=== PATIENT | female | born 1970 | race African-American/Black ===

== ENCOUNTER 2017-02-27 14:56 | Emergency (ER) | payer MEDICARE, MEDICAID ==
[~2017-02-27] VITALS: Ht 180.3 cm; Wt 126.0 kg
[~2017-02-27 14:56] MED LIST: AMLODIPINE; GLYBURIDE; METOPROLOL
[2017-02-27 15:01] VITALS: BP 150/100
== END 2017-02-27 18:39 | disposition home or self-care (01) ==
LOC: ER 15:12
DX: M54.2 Cervicalgia (principal); M54.9 Dorsalgia, unspecified; I12.0 Hypertensive chronic kidney disease with stage 5 chronic kidney disease or end stage renal disease; N18.6 End stage renal disease; E11.9 Type 2 diabetes mellitus without complications; Z99.2 Dependence on renal dialysis; V43.52XA Car driver injured in collision with other type car in traffic accident, initial encounter; Y92.488 Other paved roadways as the place of occurrence of the external cause
CPT/HCPCS: 72040; 72100; 99284

== ENCOUNTER 2017-05-22 14:48 | Inpatient (IN) | payer MEDICARE, MEDICAID ==
[~2017-05-22] VITALS: Ht 180.3 cm; Wt 127.5 kg
[2017-05-22 15:49] LABS: BASOPHILS % 0.9 % (0.0-2.0); EOSINOPHILS % 1.5 % (0.0-5.0); HEMATOCRIT. 36.2 % (36.0-48.0); HEMOGLOBIN. 12.1 g/dL (12.0-16.0); MEAN CORPUSCULAR HEMOGLOBIN 29.2 pg (28.0-32.0); MEAN CORPUSCULAR VOLUME 87.6 fL (81.0-99.0); MEAN PLATELET VOLUME 8.9 fl (7.4-10.4); MONOCYTES % 5.6 % (2.0-8.0); PLATELET 180 x1000/uL (130-400); RED BLOOD CELL COUNT 4.13 mill/uL (4.2-5.4); RED CELL DISTRIBUTION WIDTH 16.8 % (11.6-14.6)
[2017-05-22 15:53] LABS: INR 1.2; PROTHROMBIN TIME 12.4 sec
[2017-05-22 16:03] LABS: CARBON DIOXIDE 28 mEq/L (21-32); CHLORIDE 96 mEq/L (98-107); TROPONIN I 0.04 ng/mL (0.00-0.04)
[2017-05-22] MEDS ORDERED: SODIUM CHLORIDE 0.9% 500 ML IV ONE (16:15)
[2017-05-23] VITALS (7 sets, daily range): BP systolic 138–193; BP diastolic 86–138
[2017-05-23] MEDS ORDERED: DEXTROSE 50% WATER 50ML SYRINGE IV PRN (00:30)
[2017-05-23] MEDS ORDERED: HYDROCODONE/ACETAMINOPHEN 5/325MG TABLET PO PRN (00:30)
[2017-05-23] MEDS: CLONIDINE 0.1MG TABLET PO PRN (00:53)
[2017-05-23] MEDS: BLOOD SUGAR DIAGNOSTIC STRIP TEST SCH ×4 (06:24→20:07)
[2017-05-23] MEDS: INSULIN LISPRO 100 UNITS/ML SUBCUT SCH ×4 (07:50→20:07)
[2017-05-23] MEDS: AMLODIPINE 10MG TABLET PO SCH (08:58)
[2017-05-23] MEDS: METOPROLOL TARTRATE 100MG TABLET PO SCH ×2 (08:58→20:01)
[2017-05-23] MEDS ORDERED: NEPVIT PO (10:24)
[2017-05-23] MEDS ORDERED: FURO80TA3 PO (10:24)
[2017-05-23] MEDS ORDERED: DILT240C92 PO (10:24)
[2017-05-23] MEDS ORDERED: CALC-17 PO (10:24)
[2017-05-23] MEDS ORDERED: ONDANSETRON HCL 4MG/2ML VIAL IV PRN (11:45)
[2017-05-23] MEDS: FUROSEMIDE 80MG TABLET PO SCH ×2 (11:57→17:33)
[2017-05-23] MEDS: FOLIC ACID/VITAMIN B COMP W-C TABLET PO SCH (11:57)
[2017-05-23] MEDS: DILTIAZEM HCL 180MG CAPSULE CD 24HR PO SCH (11:57)
[2017-05-23] MEDS: CALCIUM CARBONATE 500MG TABLET CHEW PO SCH ×2 (12:45→17:33)
[2017-05-23] MEDS: APIXABAN 2.5 MG TABLET PO SCH (20:02)
[2017-05-24] VITALS: BP 154/109
[2017-05-24] MEDS: CLONIDINE 0.1MG TABLET PO PRN (00:37)
[2017-05-24 04:00] VITALS: BP 146/98
[2017-05-24] MEDS: BLOOD SUGAR DIAGNOSTIC STRIP TEST SCH (06:32)
[2017-05-24 07:42] LABS: BASOPHILS % 0.7 % (0.0-2.0); EOSINOPHILS % 2.4 % (0.0-5.0); HEMATOCRIT. 34.2 % (36.0-48.0); HEMOGLOBIN. 11.1 g/dL (12.0-16.0); LYMPHOCYTES % 17.5 % (20.0-50.0); MEAN CORPUSCULAR VOLUME 89.6 fL (81.0-99.0); MEAN PLATELET VOLUME 9.3 fl (7.4-10.4); MONOCYTES % 8.1 % (2.0-8.0); NEUTROPHILS % 71.3 % (40.0-76.0); PLATELET 177 x1000/uL (130-400); RED BLOOD CELL COUNT 3.82 mill/uL (4.2-5.4); RED CELL DISTRIBUTION WIDTH 16.5 % (11.6-14.6)
[2017-05-24] MEDS: CALCIUM CARBONATE 500MG TABLET CHEW PO SCH (07:55)
[2017-05-24] MEDS: INSULIN LISPRO 100 UNITS/ML SUBCUT SCH (07:55)
[2017-05-24] MEDS: FOLIC ACID/VITAMIN B COMP W-C TABLET PO SCH (07:55)
[2017-05-24 08:00] VITALS: BP 139/88
[2017-05-24 08:14] VITALS: BP 138/88
[2017-05-24] MEDS: AMLODIPINE 10MG TABLET PO SCH (08:29)
[2017-05-24] MEDS: DILTIAZEM HCL 180MG CAPSULE CD 24HR PO SCH (08:29)
[2017-05-24] MEDS: FUROSEMIDE 80MG TABLET PO SCH (08:29)
[2017-05-24] MEDS: APIXABAN 2.5 MG TABLET PO SCH (08:29)
[2017-05-24] MEDS: METOPROLOL TARTRATE 100MG TABLET PO SCH (08:31)
== END 2017-05-24 12:00 | disposition home or self-care (01) | DRG 291 ==
LOC: ER 15:03 → EDBEDREQ 18:47 → 6WST 18:47 → EDBEDREQTM 18:47 → EDBEDREQ 19:00 → ENRESERV 22:23
PROVIDERS: ADMIT Internal Medicine; ATTEND Internal Medicine
PROC: 5A1D00Z (ICD-10-PCS; principal; 2017-05-23)
DX: I13.2 Hypertensive heart and chronic kidney disease with heart failure and with stage 5 chronic kidney disease, or end stage renal disease (principal); I50.33 Acute on chronic diastolic (congestive) heart failure; N18.6 End stage renal disease; N17.0 Acute kidney failure with tubular necrosis; R65.10 Systemic inflammatory response syndrome (SIRS) of non-infectious origin without acute organ dysfunction; I48.92 Unspecified atrial flutter; I95.9 Hypotension, unspecified; E11.22 Type 2 diabetes mellitus with diabetic chronic kidney disease; E11.65 Type 2 diabetes mellitus with hyperglycemia; E83.51 Hypocalcemia; E87.8 Other disorders of electrolyte and fluid balance, not elsewhere classified; E86.0 Dehydration; K59.00 Constipation, unspecified; I48.0 Paroxysmal atrial fibrillation; D64.9 Anemia, unspecified; E66.3 Overweight; Z68.39 Body mass index [BMI] 39.0-39.9, adult; Z82.49 Family history of ischemic heart disease and other diseases of the circulatory system; Z87.440 Personal history of urinary (tract) infections; Z79.01 Long term (current) use of anticoagulants; Z99.2 Dependence on renal dialysis
CPT/HCPCS: 36415; 70450; 71010; 80048; 80053; 82962; 83036; 83880; 84484; 85025; 85610; 85651; 87040; 93005; 99285; J1815; J2405; J7030; J7040

== ENCOUNTER 2017-07-09 12:36 | Emergency (ER) | payer MEDICARE, MEDICAID ==
[~2017-07-09] VITALS: Ht 180.3 cm; Wt 118.0 kg
[~2017-07-09 12:36] MED LIST changes: +CALC-17 PO; +DILT240C92 PO; +FURO80TA3 PO; +NEPVIT PO
[2017-07-09] MEDS ORDERED: NITROGLYCERIN OINT 1GM/INCH UDPKT TD STA (13:14)
[2017-07-09] MEDS ORDERED: ASPIRIN 81MG TABLET PO STA (13:14)
[2017-07-09 14:25] LABS: BASOPHILS % 0.8 % (0.0-2.0); EOSINOPHILS % 2.5 % (0.0-5.0); HEMATOCRIT. 34.4 % (36.0-48.0); HEMOGLOBIN. 11.2 g/dL (12.0-16.0); LYMPHOCYTES % 15.8 % (20.0-50.0); MEAN CORPUSCULAR HEMOGLOBIN 28.9 pg (28.0-32.0); MEAN CORPUSCULAR VOLUME 88.5 fL (81.0-99.0); MEAN PLATELET VOLUME 8.8 fl (7.4-10.4); NEUTROPHILS % 74.9 % (40.0-76.0); PLATELET 190 x1000/uL (130-400); RED BLOOD CELL COUNT 3.89 mill/uL (4.2-5.4); RED CELL DISTRIBUTION WIDTH 17.2 % (11.6-14.6)
[2017-07-09 14:29] LABS: CHLORIDE 100 mEq/L (98-107)
[2017-07-09 14:35] LABS: INR 1.1; PARTIAL THROMBOPLASTIN TIME 45.8 sec (23.4-31.0); PROTHROMBIN TIME 11.4 sec (9.4-11.6)
[2017-07-09 14:42] LABS: CARBON DIOXIDE 23 mEq/L (21-32); TROPONIN I 0.04 ng/mL (0.00-0.04)
[2017-07-09 15:10] VITALS: BP 168/98
== END 2017-07-09 15:32 | disposition left against medical advice (07) ==
LOC: ER 12:36 → CANBEDREQ 15:15 → ER 15:32
DX: E87.70 Fluid overload, unspecified (principal); E87.5 Hyperkalemia; R06.00 Dyspnea, unspecified; E11.22 Type 2 diabetes mellitus with diabetic chronic kidney disease; I12.0 Hypertensive chronic kidney disease with stage 5 chronic kidney disease or end stage renal disease; N18.6 End stage renal disease; Z99.2 Dependence on renal dialysis
CPT/HCPCS: 36415; 71010; 80053; 83690; 84484; 85025; 85610; 85730; 93005; 99285

== ENCOUNTER 2019-05-29 19:36 | Inpatient (IN) | payer MEDICARE, MEDICAID ==
[~2019-05-29] VITALS: Ht 170.2 cm; Wt 128.8 kg
[2019-05-29 22:40] LABS: BASOPHILS % 0.4 % (0.0-2.0); EOSINOPHILS % 1.3 % (0.0-5.0); HEMATOCRIT. 35.3 % (36.0-48.0); HEMOGLOBIN. 11.6 g/dL (12.0-16.0); LYMPHOCYTES % 12.9 % (20.0-50.0); MEAN CORPUSCULAR HEMOGLOBIN 29.7 pg (28.0-32.0); MEAN CORPUSCULAR VOLUME 90.5 fL (81.0-99.0); MONOCYTES % 8.4 % (2.0-8.0); PLATELET 195 x1000/uL (130-400); RED CELL DISTRIBUTION WIDTH 16.2 % (11.6-14.6)
[2019-05-29 22:45] LABS: CHLORIDE 94 mEq/L (98-107)
[2019-05-29 22:48] LABS: PARTIAL THROMBOPLASTIN TIME 25.9 sec (23.4-31.0); PROTHROMBIN TIME 10.4 sec (9.6-11.0)
[2019-05-29 22:49] LABS: ETHANOL BLOOD < 10 mg/dL
[2019-05-30] VITALS (7 sets, daily range): BP systolic 128–140; BP diastolic 63–90
[2019-05-30] MEDS ORDERED: HYDROCODONE/ACETAMINOPHEN 5/325MG TABLET PO PRN (05:30)
[2019-05-30] MEDS ORDERED: ONDANSETRON HCL 4MG/2ML INJ IV PRN (05:30)
[2019-05-30] MEDS ORDERED: ACETAMINOPHEN 325MG TABLET PO PRN (05:30)
[2019-05-30 09:14] LABS: CREATINE KINASE MB FRACTION 2.3 ng/mL (0.5-3.6)
[2019-05-30] MEDS: ASPIRIN 81MG TABLET PO SCH (09:41)
[2019-05-30] MEDS ORDERED: DILTIAZEM HCL 30MG TABLET PO SCH (12:00)
[2019-05-30] MEDS ORDERED: DIPHENHYDRAMINE 25MG CAPSULE PO PRN (12:15)
[2019-05-30] MEDS ORDERED: DIPHENHYDRAMINE 50MG/ML VIAL IV NR (13:15)
[2019-05-30] MEDS ORDERED: CLONIDINE 0.2MG TABLET PO PRN (14:15)
[2019-05-30] MEDS ORDERED: CLONIDINE 0.1MG TABLET PO PRN (14:15)
[2019-05-30] MEDS ORDERED: REGADENOSON 0.4 MG/5 ML IV NR (14:15)
[2019-05-30] MEDS ORDERED: DILTIAZEM HCL 5MG/ML 5ML VIAL IV PRN (14:15)
[2019-05-30] MEDS ORDERED: ENOXAPARIN 120MG/0.8ML SYR SUBCUT SCH (15:00)
[2019-05-30] MEDS ORDERED: DEXTROSE 50% WATER 50ML SYRINGE IV PRN (16:00)
[2019-05-30] MEDS: BLOOD SUGAR DIAGNOSTIC STRIP TEST SCH ×2 (17:27→21:00)
[2019-05-30] MEDS: DILTIAZEM HCL 90MG TABLET NG SCH ×2 (18:34→23:52)
[2019-05-30] MEDS: FAMOTIDINE 20MG/2ML VIAL IV SCH (18:35)
[2019-05-30] MEDS: INSULIN LISPRO 100 UNITS/ML SUBCUT SCH ×2 (18:36→21:00)
[2019-05-30] MEDS: IPRATROPIUM/ALBUTEROL 0.5-3(2.5)MG/3ML NEB HHN SCH (20:22)
[2019-05-30] MEDS: BUDESONIDE 0.5MG/2ML NEB HHN SCH (20:22)
[2019-05-31 00:08] VITALS: BP 117/97
[2019-05-31] MEDS: IPRATROPIUM/ALBUTEROL 0.5-3(2.5)MG/3ML NEB HHN SCH ×4 (00:22→14:00)
[2019-05-31 04:00] VITALS: BP 145/81
[2019-05-31] MEDS: DILTIAZEM HCL 90MG TABLET NG SCH ×2 (05:53→13:38)
[2019-05-31 06:28] LABS: HEMATOCRIT 36.6 % (36.0-48.0); MEAN CORPUSCULAR HEMOGLOBIN 30.2 pg (28.0-32.0); PLATELET 180 x1000/uL (130-400); RED BLOOD CELL COUNT 3.98 mill/uL (4.2-5.4); RED CELL DISTRIBUTION WIDTH 15.9 % (11.6-14.6)
[2019-05-31] MEDS: BLOOD SUGAR DIAGNOSTIC STRIP TEST SCH ×2 (07:21→12:51)
[2019-05-31] MEDS: INSULIN LISPRO 100 UNITS/ML SUBCUT SCH ×2 (07:26→12:52)
[2019-05-31 08:00] VITALS: BP 138/77
[2019-05-31] MEDS: BUDESONIDE 0.5MG/2ML NEB HHN SCH (08:40)
[2019-05-31] MEDS: FAMOTIDINE 20MG/2ML VIAL IV SCH (08:58)
[2019-05-31] MEDS: ASPIRIN 81MG TABLET PO SCH (08:58)
[2019-05-31] MEDS ORDERED: REGADENOSON 0.4 MG/5 ML IV ONE (09:56)
[2019-05-31 12:00] VITALS: BP 116/74
[2019-05-31 13:57] VITALS: BP 116/74
== END 2019-05-31 14:49 | disposition home or self-care (01) | DRG 291 ==
LOC: ER 20:00 → 7WST 05-30 00:21 → EDBEDREQTM 05-30 00:33 → EDBEDREQ 05-30 00:33 → EDBEDREQDT 05-30 00:33 → ENRESERV 05-30 02:15
PROVIDERS: ADMIT Internal Medicine; ATTEND Internal Medicine
PROC: 5A1D70Z Performance of Urinary Filtration, Intermittent, Less than 6 Hours Per Day (ICD-10-PCS; principal; 2019-05-30)
DX: I13.2 Hypertensive heart and chronic kidney disease with heart failure and with stage 5 chronic kidney disease, or end stage renal disease (principal); N18.6 End stage renal disease; I50.43 Acute on chronic combined systolic (congestive) and diastolic (congestive) heart failure; J44.1 Chronic obstructive pulmonary disease with (acute) exacerbation; D68.59 Other primary thrombophilia; Z68.41 Body mass index [BMI] 40.0-44.9, adult; E11.65 Type 2 diabetes mellitus with hyperglycemia; E66.01 Morbid (severe) obesity due to excess calories; R07.89 Other chest pain; E87.6 Hypokalemia; D63.8 Anemia in other chronic diseases classified elsewhere; E11.21 Type 2 diabetes mellitus with diabetic nephropathy; I48.0 Paroxysmal atrial fibrillation; I49.9 Cardiac arrhythmia, unspecified; R06.03 Acute respiratory distress; Z79.01 Long term (current) use of anticoagulants; Z99.2 Dependence on renal dialysis; Z79.899 Other long term (current) drug therapy
CPT/HCPCS: 36415; 71045; 78452; 78580; 80048; 80061; 80320; 82550; 82553; 82962; 83036; 83880; 84484; 85027; 93005; 93017; 93306; 93970; 99285; A9500; J1200; J1650; J1815; J2785; J3490; J7620; J7626; Q0163; G0480

== ENCOUNTER 2019-06-01 17:01 | Emergency (ER) | payer MEDICARE, MEDICAID ==
[~2019-06-01] VITALS: Ht 180.3 cm; Wt 100.0 kg
[~2019-06-01 17:01] MED LIST changes: -AMLODIPINE; -GLYBURIDE; -METOPROLOL
[2019-06-01 17:10] VITALS: BP 137/88
== END 2019-06-01 18:00 | disposition left against medical advice (07) ==
LOC: ER 17:01 → CANBEDREQ 20:57
DX: R07.9 Chest pain, unspecified (principal); R00.0 Tachycardia, unspecified; N19 Unspecified kidney failure; E11.9 Type 2 diabetes mellitus without complications; I50.9 Heart failure, unspecified
CPT/HCPCS: 99283

== ENCOUNTER 2020-11-24 11:53 | Emergency (ER) | payer MEDICARE, MEDICAID ==
[~2020-11-24] VITALS: Ht 177.8 cm; Wt 122.0 kg
[2020-11-24] MEDS ORDERED: OXYMETAZOLINE HCL NASAL SPRAY 15ML BOTHNSTRLS STA (12:34)
[2020-11-24] MEDS ORDERED: OXYMETAZOLINE HCL NASAL SPRAY 15ML BOTHNSTRLS SCH (12:45)
[2020-11-24] MEDS ORDERED: ACETAMINOPHEN 325MG TABLET PO ONE (14:00)
[2020-11-24 15:00] VITALS: BP 149/70
== END 2020-11-24 15:42 | disposition home or self-care (01) ==
LOC: ER 11:53
DX: R04.0 Epistaxis (principal); N18.6 End stage renal disease; Z99.2 Dependence on renal dialysis; I50.9 Heart failure, unspecified; E11.9 Type 2 diabetes mellitus without complications; Z98.890 Other specified postprocedural states; Z79.899 Other long term (current) drug therapy
CPT/HCPCS: 99284

== ENCOUNTER 2020-11-26 14:43 | Emergency (ER) | payer MEDICARE, MEDICAID ==
[~2020-11-26] VITALS: Ht 180.3 cm; Wt 131.0 kg
[2020-11-26] MEDS ORDERED: DILTIAZEM HCL 120MG CAPSULE CD 24HR PO ONE (16:15)
[2020-11-26 16:30] VITALS: BP 146/92
== END 2020-11-26 16:57 | disposition home or self-care (01) ==
LOC: ER 14:43
DX: R04.0 Epistaxis (principal); I48.91 Unspecified atrial fibrillation; E11.22 Type 2 diabetes mellitus with diabetic chronic kidney disease; I13.2 Hypertensive heart and chronic kidney disease with heart failure and with stage 5 chronic kidney disease, or end stage renal disease; I50.9 Heart failure, unspecified; N18.6 End stage renal disease; Z99.2 Dependence on renal dialysis; Z88.5 Allergy status to narcotic agent; Z79.01 Long term (current) use of anticoagulants
CPT/HCPCS: 93005; 99283

== ENCOUNTER 2021-03-23 23:14 | Inpatient (IN) | payer MEDICARE, MEDICAID ==
[~2021-03-23] VITALS: Ht 162.6 cm; Wt 127.0 kg
[2021-03-23] MEDS ORDERED: MIDAZOLAM HCL 2 MG/2 ML VIAL IV ONE (23:45)
[2021-03-23] MEDS ORDERED: LIDOCAINE HCL/EPINEPHRINE 1%-EPI 1:100,000 10 ML VIAL IJ ONE (23:45)
[2021-03-23] MEDS ORDERED: LIDOCAINE HCL/EPINEPHRINE 1%-EPI 1:100,000 20 ML VIAL INFIL SCH (23:45)
[2021-03-23] MEDS ORDERED: BACITRACIN ZINC OINT UDPKT TOP ONE (23:45)
[2021-03-23] MEDS ORDERED: DESMOPRESSIN ACETATE 4MCG/ML AMP IV ONE (23:45)
[2021-03-24] VITALS (44 sets, daily range): BP systolic 75–154; BP diastolic 45–97
[2021-03-24] LABS: BASOPHILS % 0.5 % (0.0-2.0); EOSINOPHILS % 2.2 % (0.0-5.0); HEMATOCRIT. 31.7 % (36.0-48.0); HEMOGLOBIN. 10.4 g/dL (12.0-16.0); LYMPHOCYTES % 35.3 % (20.0-50.0); MEAN CORPUSCULAR HEMOGLOBIN 30.2 pg (28.0-32.0); MEAN CORPUSCULAR VOLUME 92.3 fL (81.0-99.0); MEAN PLATELET VOLUME 8.7 fl (7.4-10.4); MONOCYTES % 10.3 % (2.0-8.0); NEUTROPHILS % 51.7 % (40.0-76.0); PLATELET 220 x1000/uL (130-400); RED BLOOD CELL COUNT 3.44 mill/uL (4.2-5.4); RED CELL DISTRIBUTION WIDTH 16.8 % (11.6-14.6)
[2021-03-24 00:08] LABS: CHLORIDE 104 mEq/L (98-107)
[2021-03-24 00:10] LABS: INR 1.1; PROTHROMBIN TIME 11.8 sec (9.6-11.0)
[2021-03-24] MEDS ORDERED: SODIUM CHLORIDE 0.9% 500 ML IV ONE (00:15)
[2021-03-24] MEDS ORDERED: DEXTROSE 50% WATER 50ML SYRINGE IV PRN (10:00)
[2021-03-24] MEDS ORDERED: DIGOXIN 500MCG/2ML AMP IV SCH (11:00)
[2021-03-24] MEDS ORDERED: ACETAMINOPHEN 650MG SUPP PR PRN (11:00)
[2021-03-24] MEDS ORDERED: ACETAMINOPHEN 325MG TABLET PO PRN (11:00)
[2021-03-24] MEDS ORDERED: IPRATROPIUM/ALBUTEROL 0.5-3(2.5)MG/3ML NEB HHN PRN (11:00)
[2021-03-24] MEDS ORDERED: ONDANSETRON HCL 4MG/2ML INJ IV PRN (11:00)
[2021-03-24] MEDS ORDERED: BISACODYL 10MG SUPP PR PRN (11:00)
[2021-03-24] MEDS: PANTOPRAZOLE SODIUM 40 MG/VIAL IV SCH (11:19)
[2021-03-24] MEDS: HYDROCODONE/ACETAMINOPHEN 5/325MG TABLET PO PRN ×2 (11:27→21:32)
[2021-03-24] MEDS ORDERED: PHENYLEPHRINE 100 MG in DEXT 5% WATER 240 ML IV PRN (11:45)
[2021-03-24 12:03] LABS: BASOPHILS % 0.8 % (0.0-2.0); EOSINOPHILS % 0.9 % (0.0-5.0); HEMATOCRIT. 26.7 % (36.0-48.0); HEMOGLOBIN. 9.1 g/dL (12.0-16.0); LYMPHOCYTES % 14.7 % (20.0-50.0); MEAN CORPUSCULAR HEMOGLOBIN 31.8 pg (28.0-32.0); MEAN CORPUSCULAR VOLUME 93.6 fL (81.0-99.0); MEAN PLATELET VOLUME 8.9 fl (7.4-10.4); MONOCYTES % 7.4 % (2.0-8.0); NEUTROPHILS % 76.2 % (40.0-76.0); PLATELET 118 x1000/uL (130-400); RED BLOOD CELL COUNT 2.85 mill/uL (4.2-5.4); RED CELL DISTRIBUTION WIDTH 17.9 % (11.6-14.6)
[2021-03-24] MEDS: BLOOD SUGAR DIAGNOSTIC STRIP TEST SCH ×3 (12:29→21:00)
[2021-03-24] MEDS: DILTIAZEM HCL 125 MG in DEXT 5% WATER 100 ML IV PRN (13:15)
[2021-03-24] MEDS: INSULIN LISPRO 100 UNITS/ML SUBCUT SCH ×3 (13:20→21:00)
[2021-03-24 15:42] LABS: INR 1.1; PARTIAL THROMBOPLASTIN TIME 29.1 sec (23.4-31.0); PROTHROMBIN TIME 11.9 sec (9.6-11.0)
[2021-03-24 15:52] LABS: CHLORIDE 106 mEq/L (98-107)
[2021-03-24] MEDS: EPOETIN ALFA-EPBX 10,000 UNIT/ML VIAL SUBCUT SCH (22:15)
[2021-03-24] MEDS: DIPHENHYDRAMINE 50MG/ML VIAL IV PRN (22:57)
[2021-03-24 23:17] LABS: HEMATOCRIT 22.4 % (36.0-48.0); HEMOGLOBIN 7.6 g/dL (12.0-16.0)
[2021-03-25] VITALS (101 sets, daily range): BP systolic 78–147; BP diastolic 29–81
[2021-03-25] MEDS: HYDROCODONE/ACETAMINOPHEN 5/325MG TABLET PO PRN ×2 (05:23→11:48)
[2021-03-25] MEDS: BLOOD SUGAR DIAGNOSTIC STRIP TEST SCH ×4 (07:50→21:20)
[2021-03-25] MEDS: INSULIN LISPRO 100 UNITS/ML SUBCUT SCH ×4 (08:20→21:00)
[2021-03-25] MEDS: PANTOPRAZOLE SODIUM 40 MG/VIAL IV SCH (09:22)
[2021-03-25] MEDS: DILTIAZEM HCL 125 MG in DEXT 5% WATER 100 ML IV PRN (10:13)
[2021-03-25 10:52] LABS: BASOPHILS % 0.3 % (0.0-2.0); EOSINOPHILS % 1.9 % (0.0-5.0); HEMATOCRIT. 25.6 % (36.0-48.0); HEMOGLOBIN. 8.6 g/dL (12.0-16.0); LYMPHOCYTES % 15.3 % (20.0-50.0); MEAN CORPUSCULAR HEMOGLOBIN 30.4 pg (28.0-32.0); MEAN CORPUSCULAR VOLUME 90.4 fL (81.0-99.0); MEAN PLATELET VOLUME 8.3 fl (7.4-10.4); MONOCYTES % 6.1 % (2.0-8.0); NEUTROPHILS % 76.4 % (40.0-76.0); PLATELET 118 x1000/uL (130-400); RED BLOOD CELL COUNT 2.84 mill/uL (4.2-5.4); RED CELL DISTRIBUTION WIDTH 17.1 % (11.6-14.6)
[2021-03-25] MEDS: MIDODRINE HCL 5MG TABLET PO SCH ×2 (16:50→21:21)
[2021-03-25] MEDS: HYDROCODONE/APAP 7.5/325MG 1 TAB TABLET PO PRN ×2 (16:51→23:22)
[2021-03-25] MEDS: DILTIAZEM HCL 60MG TABLET PO SCH ×2 (16:51→23:22)
[2021-03-25] MEDS ORDERED: DILTIAZEM HCL 60MG TABLET PO SCH (18:00)
[2021-03-25] MEDS: METOPROLOL TARTRATE 25MG TABLET PO SCH (21:00)
[2021-03-25 21:17] LABS: HEMATOCRIT 24.8 % (36.0-48.0); HEMOGLOBIN 8.3 g/dL (12.0-16.0)
[2021-03-26] VITALS (69 sets, daily range): BP systolic 82–151; BP diastolic 40–93
[2021-03-26] MEDS: DIPHENHYDRAMINE 50MG/ML VIAL IV PRN ×2 (03:59→23:27)
[2021-03-26] MEDS: DILTIAZEM HCL 60MG TABLET PO SCH ×2 (06:00→07:40)
[2021-03-26 06:49] LABS: BASOPHILS % 0.3 % (0.0-2.0); EOSINOPHILS % 2.3 % (0.0-5.0); HEMATOCRIT. 24.3 % (36.0-48.0); HEMOGLOBIN. 8.2 g/dL (12.0-16.0); LYMPHOCYTES % 17.8 % (20.0-50.0); MEAN CORPUSCULAR VOLUME 89.3 fL (81.0-99.0); MEAN PLATELET VOLUME 8.2 fl (7.4-10.4); MONOCYTES % 8.3 % (2.0-8.0); NEUTROPHILS % 71.3 % (40.0-76.0); PLATELET 123 x1000/uL (130-400); RED BLOOD CELL COUNT 2.72 mill/uL (4.2-5.4); RED CELL DISTRIBUTION WIDTH 17.1 % (11.6-14.6)
[2021-03-26] MEDS: HYDROCODONE/APAP 7.5/325MG 1 TAB TABLET PO PRN ×2 (07:39→23:21)
[2021-03-26] MEDS: INSULIN LISPRO 100 UNITS/ML SUBCUT SCH ×4 (08:15→21:00)
[2021-03-26] MEDS: BLOOD SUGAR DIAGNOSTIC STRIP TEST SCH ×4 (08:15→21:15)
[2021-03-26] MEDS: METOPROLOL TARTRATE 25MG TABLET PO SCH ×2 (08:16→21:14)
[2021-03-26] MEDS: PANTOPRAZOLE SODIUM 40 MG/VIAL IV SCH (08:16)
[2021-03-26] MEDS: MIDODRINE HCL 5MG TABLET PO SCH ×3 (08:16→17:57)
[2021-03-26] MEDS: DILTIAZEM HCL 30MG TABLET PO SCH ×3 (12:15→23:27)
[2021-03-26] MEDS: EPOETIN ALFA-EPBX 10,000 UNIT/ML VIAL SUBCUT SCH (21:14)
[2021-03-26 21:37] LABS: HEMATOCRIT 25.6 % (36.0-48.0); HEMOGLOBIN 8.7 g/dL (12.0-16.0)
[2021-03-27] VITALS (12 sets, daily range): BP systolic 120–171; BP diastolic 67–110
[2021-03-27] MEDS: DILTIAZEM HCL 30MG TABLET PO SCH ×4 (05:14→23:42)
[2021-03-27 06:03] LABS: BASOPHILS % 0.6 % (0.0-2.0); EOSINOPHILS % 2.9 % (0.0-5.0); HEMATOCRIT. 23.6 % (36.0-48.0); LYMPHOCYTES % 14.7 % (20.0-50.0); MEAN CORPUSCULAR HEMOGLOBIN 30.3 pg (28.0-32.0); MEAN CORPUSCULAR VOLUME 89.8 fL (81.0-99.0); MEAN PLATELET VOLUME 8.4 fl (7.4-10.4); MONOCYTES % 6.7 % (2.0-8.0); NEUTROPHILS % 75.1 % (40.0-76.0); PLATELET 135 x1000/uL (130-400); RED BLOOD CELL COUNT 2.63 mill/uL (4.2-5.4); RED CELL DISTRIBUTION WIDTH 16.7 % (11.6-14.6)
[2021-03-27] MEDS: BLOOD SUGAR DIAGNOSTIC STRIP TEST SCH ×4 (07:30→21:23)
[2021-03-27] MEDS: INSULIN LISPRO 100 UNITS/ML SUBCUT SCH ×4 (08:00→21:00)
[2021-03-27] MEDS: MIDODRINE HCL 5MG TABLET PO SCH ×3 (09:00→17:00)
[2021-03-27] MEDS: PANTOPRAZOLE SODIUM 40 MG/VIAL IV SCH (09:21)
[2021-03-27] MEDS: METOPROLOL TARTRATE 25MG TABLET PO SCH ×2 (09:28→21:04)
[2021-03-27] MEDS: HYDROCODONE/APAP 7.5/325MG 1 TAB TABLET PO PRN ×2 (09:57→21:23)
[2021-03-27] MEDS: LORAZEPAM 2MG/ML CPJ IV PRN (10:23)
[2021-03-27] MEDS ORDERED: ROPIVACAINE HCL 10MG/ML 20 ML VIAL EPI ONE (10:53)
[2021-03-27] MEDS ORDERED: PAPAVERINE HCL 30 MG/ML 2ML IV ONE (10:54)
[2021-03-27] MEDS ORDERED: SODIUM CHLORIDE 0.9% INJ 10ML FLUSH IVF ONE (10:55)
[2021-03-27] MEDS ORDERED: BUPIVACAINE HCL/PF 0.5% (5MG/ML) 10ML ONE (10:55)
[2021-03-27] MEDS ORDERED: HEPARIN SODIUM 1,000 UNIT/1ML VIAL IV ONE (10:55)
[2021-03-27] MEDS ORDERED: POLYMYXIN B SULFATE 500000 UNITS/VIAL ONE (10:56)
[2021-03-27] MEDS ORDERED: THROMBIN (BOVINE) 5000 UNITS/VIAL TOP ONE (10:56)
[2021-03-27] MEDS ORDERED: LIDOCAINE HCL/PF 1% 10 MG/ML 5ML VIAL ONE (10:56)
[2021-03-27] MEDS ORDERED: SUCCINYLCHOLINE CHLORIDE 200MG/10ML IV ONE (11:03)
[2021-03-27] MEDS ORDERED: PROPOFOL 200MG/20ML VIAL IV ONE ×2 (11:03→11:51)
[2021-03-27] MEDS ORDERED: PHENYLEPHRINE HCL 10 MG/ML 1ML (IV VIAL) IV ONE (11:03)
[2021-03-27] MEDS ORDERED: MIDAZOLAM HCL 5 MG/5 ML VIAL ONE (11:03)
[2021-03-27] MEDS ORDERED: CEFAZOLIN SODIUM 1000MG/VIAL ONE (11:21)
[2021-03-27] MEDS ORDERED: HEPARIN 1000 UNITS/ML 10ML ONE (11:37)
[2021-03-27] MEDS ORDERED: SODIUM CHLORIDE 0.9% 1,000 ML IV SCH (12:45)
[2021-03-27] MEDS ORDERED: HYDROMORPHONE HCL/PF 2MG/ML CPJ IV PRN (12:45)
[2021-03-27] MEDS ORDERED: ONDANSETRON HCL 4MG/2ML INJ IV PRN (12:45)
[2021-03-27] MEDS: DIPHENHYDRAMINE 50MG/ML VIAL IV PRN (21:09)
[2021-03-28] VITALS (20 sets, daily range): BP systolic 113–168; BP diastolic 53–121
[2021-03-28] MEDS: HYDROCODONE/APAP 7.5/325MG 1 TAB TABLET PO PRN ×3 (03:29→21:07)
[2021-03-28] MEDS: LORAZEPAM 2MG/ML CPJ IV PRN ×2 (03:29→23:34)
[2021-03-28] MEDS: DILTIAZEM HCL 30MG TABLET PO SCH ×4 (05:40→23:21)
[2021-03-28 06:03] LABS: BASOPHILS % 0.2 % (0.0-2.0); EOSINOPHILS % 2.2 % (0.0-5.0); HEMATOCRIT. 25.8 % (36.0-48.0); HEMOGLOBIN. 8.4 g/dL (12.0-16.0); LYMPHOCYTES % 10.3 % (20.0-50.0); MEAN CORPUSCULAR HEMOGLOBIN 30.1 pg (28.0-32.0); MEAN CORPUSCULAR VOLUME 92.2 fL (81.0-99.0); MEAN PLATELET VOLUME 8.7 fl (7.4-10.4); MONOCYTES % 7.7 % (2.0-8.0); NEUTROPHILS % 79.6 % (40.0-76.0); PLATELET 149 x1000/uL (130-400); RED CELL DISTRIBUTION WIDTH 16.7 % (11.6-14.6)
[2021-03-28] MEDS: BLOOD SUGAR DIAGNOSTIC STRIP TEST SCH ×4 (07:53→21:19)
[2021-03-28] MEDS: INSULIN LISPRO 100 UNITS/ML SUBCUT SCH ×4 (08:00→21:00)
[2021-03-28] MEDS: PANTOPRAZOLE SODIUM 40 MG/VIAL IV SCH (08:23)
[2021-03-28] MEDS: MIDODRINE HCL 5MG TABLET PO SCH ×3 (08:24→17:00)
[2021-03-28] MEDS: METOPROLOL TARTRATE 25MG TABLET PO SCH ×2 (08:24→21:41)
[2021-03-28] MEDS ORDERED: SODIUM POLYSTYRENE SULFONATE 15 G/60 ML BOT PO NR ×2 (12:30→18:30)
[2021-03-28] MEDS ORDERED: SODIUM BICARBONATE 8.4% 1 MEQ/ML 50ML SYR IV NR (14:00)
[2021-03-28] MEDS ORDERED: DEXTROSE 50% WATER 50ML SYRINGE IV NR (14:00)
[2021-03-28] MEDS ORDERED: INSULIN REGULAR (HUMULIN R) 300UNITS/3ML VIAL IV NR (14:00)
[2021-03-28] MEDS ORDERED: CALCIUM GLUCONATE 100MG/ML 10ML VIAL IV NR (14:30)
[2021-03-28] MEDS: DIPHENHYDRAMINE 50MG/ML VIAL IV PRN (21:06)
[2021-03-29] VITALS (23 sets, daily range): BP systolic 119–157; BP diastolic 61–96
[2021-03-29] MEDS: HYDROCODONE/APAP 7.5/325MG 1 TAB TABLET PO PRN ×2 (03:22→16:39)
[2021-03-29] MEDS: DILTIAZEM HCL 30MG TABLET PO SCH (06:01)
[2021-03-29 07:41] LABS: BASOPHILS % 0.3 % (0.0-2.0); EOSINOPHILS % 2.4 % (0.0-5.0); HEMATOCRIT. 23.9 % (36.0-48.0); HEMOGLOBIN. 7.7 g/dL (12.0-16.0); LYMPHOCYTES % 11.7 % (20.0-50.0); MEAN CORPUSCULAR HEMOGLOBIN 29.9 pg (28.0-32.0); MEAN CORPUSCULAR VOLUME 92.5 fL (81.0-99.0); MEAN PLATELET VOLUME 8.3 fl (7.4-10.4); MONOCYTES % 6.6 % (2.0-8.0); PLATELET 130 x1000/uL (130-400); RED BLOOD CELL COUNT 2.59 mill/uL (4.2-5.4); RED CELL DISTRIBUTION WIDTH 17.1 % (11.6-14.6)
[2021-03-29] MEDS: INSULIN LISPRO 100 UNITS/ML SUBCUT SCH ×4 (08:00→21:00)
[2021-03-29] MEDS ORDERED: SODIUM POLYSTYRENE SULFONATE 15 G/60 ML BOT PO SCH (08:00)
[2021-03-29] MEDS: BLOOD SUGAR DIAGNOSTIC STRIP TEST SCH ×4 (08:27→21:53)
[2021-03-29] MEDS: METOPROLOL TARTRATE 25MG TABLET PO SCH ×2 (09:00→21:00)
[2021-03-29] MEDS: MIDODRINE HCL 5MG TABLET PO SCH ×3 (09:00→16:38)
[2021-03-29] MEDS: PANTOPRAZOLE SODIUM 40 MG/VIAL IV SCH (10:52)
[2021-03-29] MEDS: DILTIAZEM HCL 60MG TABLET PO SCH ×3 (12:00→23:45)
[2021-03-29] MEDS ORDERED: HEPARIN 1000 UNITS/ML 10ML ONE (13:39)
[2021-03-29] MEDS ORDERED: LIDOCAINE HCL 1% 20ML VIAL (Pyxis) INJ ONE (13:39)
[2021-03-29] MEDS ORDERED: FENTANYL CITRATE/PF 50MCG/ML 2ML VIAL ONE (13:45)
[2021-03-29] MEDS ORDERED: FENTANYL CITRATE/PF 50MCG/ML 2ML VIAL IV SCH (13:45)
[2021-03-29] MEDS ORDERED: CEFAZOLIN 1000MG PREMIX 50 ML IV ONE (13:45)
[2021-03-29] MEDS ORDERED: CEFAZOLIN 1000MG PREMIX 50 ML IV SCH (13:45)
[2021-03-29] MEDS ORDERED: IOHEXOL-300 50 ML BOTTLE IV ONE (15:01)
[2021-03-29] MEDS: EPOETIN ALFA-EPBX 10,000 UNIT/ML VIAL SUBCUT SCH (20:46)
[2021-03-30] VITALS (7 sets, daily range): BP systolic 113–144; BP diastolic 66–86
[2021-03-30] MEDS: HYDROCODONE/APAP 7.5/325MG 1 TAB TABLET PO PRN ×2 (01:26→11:14)
[2021-03-30] MEDS: DILTIAZEM HCL 60MG TABLET PO SCH (05:18)
[2021-03-30] MEDS: BLOOD SUGAR DIAGNOSTIC STRIP TEST SCH ×2 (07:30→12:45)
[2021-03-30 07:41] LABS: BASOPHILS % 0.3 % (0.0-2.0); EOSINOPHILS % 2.6 % (0.0-5.0); HEMATOCRIT. 24.3 % (36.0-48.0); LYMPHOCYTES % 9.1 % (20.0-50.0); MEAN CORPUSCULAR HEMOGLOBIN 30.2 pg (28.0-32.0); MEAN PLATELET VOLUME 8.2 fl (7.4-10.4); MONOCYTES % 6.6 % (2.0-8.0); NEUTROPHILS % 81.4 % (40.0-76.0); PLATELET 120 x1000/uL (130-400); RED BLOOD CELL COUNT 2.64 mill/uL (4.2-5.4); RED CELL DISTRIBUTION WIDTH 17.3 % (11.6-14.6)
[2021-03-30] MEDS: INSULIN LISPRO 100 UNITS/ML SUBCUT SCH ×2 (08:00→12:45)
[2021-03-30] MEDS: PANTOPRAZOLE SODIUM 40 MG/VIAL IV SCH (09:00)
[2021-03-30] MEDS ORDERED: METOPROLOL TARTRATE 50MG TABLET PO SCH (09:00)
[2021-03-30] MEDS: MIDODRINE HCL 5MG TABLET PO SCH ×2 (11:15→13:00)
[2021-03-30] MEDS ORDERED: DILTIAZEM HCL 90MG TABLET PO SCH (12:00)
[2021-03-30] MEDS ORDERED: PROT40 MT (14:51)
[2021-03-30] MEDS ORDERED: APIX2.5T MT (14:51)
[2021-03-30] MEDS ORDERED: METO-539 MT (14:51)
[2021-03-30] MEDS ORDERED: MIDO5TAB4 MT (14:51)
[2021-03-30] MEDS ORDERED: DILT60TA3 PO (14:51)
[2021-03-30 17:24] LABS: HEMATOCRIT 29.1 % (36.0-48.0); HEMOGLOBIN 9.4 g/dL (12.0-16.0); MEAN CORPUSCULAR HEMOGLOBIN 30.3 pg (28.0-32.0); MEAN CORPUSCULAR VOLUME 93.3 fL (81.0-99.0); PLATELET 150 x1000/uL (130-400); RED BLOOD CELL COUNT 3.11 mill/uL (4.2-5.4); RED CELL DISTRIBUTION WIDTH 17.4 % (11.6-14.6)
== END 2021-03-30 18:45 | disposition home or self-care (01) | DRG 252 ==
LOC: ER 23:14 → CVICU 03-24 01:03 → EDBEDREQ 03-24 01:08 → EDBEDREQTM 03-24 01:08 → ENRESERV 03-24 08:02 → 5EST 03-26 22:42
PROVIDERS: ADMIT Internal Medicine; ATTEND Internal Medicine
PROC: 30233N1 Transfusion of Nonautologous Red Blood Cells into Peripheral Vein, Percutaneous Approach (ICD-10-PCS; 2021-03-24)
PROC: 5A1D70Z Performance of Urinary Filtration, Intermittent, Less than 6 Hours Per Day (ICD-10-PCS; 2021-03-24)
PROC: 5A1D80Z Performance of Urinary Filtration, Prolonged Intermittent, 6-18 hours Per Day (ICD-10-PCS; 2021-03-26)
PROC: 03BC0ZZ Excision of Left Radial Artery, Open Approach (ICD-10-PCS; principal; 2021-03-27)
PROC: 03WY0KZ Revision of Nonautologous Tissue Substitute in Upper Artery, Open Approach (ICD-10-PCS; 2021-03-27)
PROC: 03U Upper Arteries, Supplement (ICD-10-PCS; 2021-03-27)
PROC: 5A1D70Z Performance of Urinary Filtration, Intermittent, Less than 6 Hours Per Day (ICD-10-PCS; 2021-03-28)
PROC: 5A1945Z Respiratory Ventilation, 24-96 Consecutive Hours (ICD-10-PCS; 2021-03-28)
PROC: 0JH63XZ Insertion of Tunneled Vascular Access Device into Chest Subcutaneous Tissue and Fascia, Percutaneous Approach (ICD-10-PCS; 2021-03-29)
PROC: 02H633Z Insertion of Infusion Device into Right Atrium, Percutaneous Approach (ICD-10-PCS; 2021-03-29)
PROC: 5A1D70Z Performance of Urinary Filtration, Intermittent, Less than 6 Hours Per Day (ICD-10-PCS; 2021-03-30)
DX: T82.838A Hemorrhage due to vascular prosthetic devices, implants and grafts, initial encounter (principal); N18.6 End stage renal disease; R57.8 Other shock; G93.41 Metabolic encephalopathy; I63.9 Cerebral infarction, unspecified; I50.33 Acute on chronic diastolic (congestive) heart failure; I31.3 Pericardial effusion (noninflammatory); D62 Acute posthemorrhagic anemia; I48.20 Chronic atrial fibrillation, unspecified; L97.909 Non-pressure chronic ulcer of unspecified part of unspecified lower leg with unspecified severity; Z68.42 Body mass index [BMI] 45.0-49.9, adult; I48.92 Unspecified atrial flutter; I13.2 Hypertensive heart and chronic kidney disease with heart failure and with stage 5 chronic kidney disease, or end stage renal disease; I27.21 Secondary pulmonary arterial hypertension; E66.01 Morbid (severe) obesity due to excess calories; Y84.1 Kidney dialysis as the cause of abnormal reaction of the patient, or of later complication, without mention of misadventure at the time of the procedure; D63.8 Anemia in other chronic diseases classified elsewhere; E86.1 Hypovolemia; E11.21 Type 2 diabetes mellitus with diabetic nephropathy; I87.8 Other specified disorders of veins; G47.33 Obstructive sleep apnea (adult) (pediatric); Z20.822 Contact with and (suspected) exposure to COVID-19; Z53.20 Procedure and treatment not carried out because of patient's decision for unspecified reasons; E11.22 Type 2 diabetes mellitus with diabetic chronic kidney disease; Z99.2 Dependence on renal dialysis; Z88.5 Allergy status to narcotic agent; Z79.84 Long term (current) use of oral hypoglycemic drugs; Z79.899 Other long term (current) drug therapy; Z79.01 Long term (current) use of anticoagulants; Z91.19 Patient's noncompliance with other medical treatment and regimen; Y92.89 Other specified places as the place of occurrence of the external cause; I35.0 Nonrheumatic aortic (valve) stenosis; I72.8 Aneurysm of other specified arteries
CPT/HCPCS: 36415; 36558; 71045; 76937; 77001; 80048; 80053; 80061; 82140; 82962; 83036; 83735; 84132; 84484; 85014; 85018; 85025; 85027; 86850; 86900; 86920; 87426; 88304; 93005; 93306; 93970; 94660; 97162; 97530; 99152; 99153; 99291; A4565; A6261; C1750; C1768; C1769; C1887; C9113; J0330; J0610; J0690; J0885; J1160; J1200; J1644; J1815; J2060; J2250; J2370; J2405; J2440; J2597; J2704; J2795; J3010; J3490; J7040; J7060; P9016; Q9967; G0500